=== PATIENT | female | born 1985 | race Caucasian/White ===

== ENCOUNTER → 2020-04-14 | Outpatient (CLI) | payer BC ==
[~2020-04-14] MED LIST: birth control pills
== END ==
LOC: LAB 10:30
PROVIDERS: ATTEND Nurse Anesthetist, Certified Registered
DX: Z01.812 Encounter for preprocedural laboratory examination (principal); Z20.822 Contact with and (suspected) exposure to COVID-19; D17.79 Benign lipomatous neoplasm of other sites
CPT/HCPCS: U0003

== ENCOUNTER → 2020-04-18 | Day surgery (SDC) | payer BC ==
[~2020-04-18] MED LIST changes: +BUPIVACAINE-EPI 0.25%-1:200000 MPF 30 ML VIAL. ONE
--- NOTE | 2020-04-18 11:18 | PDOC4 ---
Operative Report DATE April 182021-01-09 Preop Diagnosis Right shoulder mass Post-op Diagnosis Same Operation Performed Excision of right shoulder mass Patient is 34-year-old female with complaints of a subcutaneous mass in her right shoulder. Procedure of excision was explained to the patient detail was benefits were also discussed including bleeding infection alternatives to this procedure also discussed with patient who seemed to understand and gave a verbal written consent to have the procedure performed. Patient was taken to the minors room placed in the prone positioning her right shoulder was prepped and draped usual sterile fashion using ChloraPrep. An area over the mass was injected with quarter percent Marcaine with epinephrine once this was in anesthetized incision was made with 15 blade scalpel through the skin down to the mass which appeared to be a lipoma. The lipoma was excised sharply with Metzenbaum scissors and sent for pathology. Size of lipomas 4 x 4 cm size of the incision was 6 cm in length. The wound was closed in 2 layers the deep layer running 3-0 Vicryl and the skin was reapproximated for subcuticular Monocryl Mastisol Steri-Strips and island dressings were applied. Patient tolerated procedure well was discharged home in stable condition all sponge in strument needle counts listed as correct Surgeon Fredi ANESTHESIA PROPOSED: LOCAL Blood Loss 5 mL Specimen Right shoulder mass Complications None TANYA VALDEZ MD Apr 18, 2020 11:18
--- NOTE | 2020-04-18 11:20 | DISCH ---
DISCHARGE INSTRUCTIONS-DC Condition on Discharge Condition on Discharge: Stable Activity after Discharge Activity Instructions for Disc: No restrictions Diet after Discharge Diet after Discharge: Regular Wound/Incision Care Other wound/incision instructi: Ana shower in 24 hours Contacting the DRArtemio after DC Call your doctor for: If your condition worsens Follow-Up Follow up with: Dr. Valdez in 2 weeks TANYA VALDEZ MD Apr 18, 2020 11:20
[2020-04-18 11:26] VITALS: BP 127/79
--- NOTE | 2020-04-21 09:08 | PATHOLOGY ---
[facility] Accession Number: [id number] . 01 Material submitted: . shoulder - R SHOULDER LIPOMA. Modifiers: right . 01 Clinical history: . R SHOULDER LIPOMA . 02 Diagnosis: Segments of fibroadipose tissue, right shoulder lesion excision: - Lipoma. (JPM:protective services officer; 04/20/2020) [facility] 04/20/2020 1726 Local . 02 Electronically signed: . Gab Richey MD, Pathologist NPI- [id number] . 01 Gross description: . The specimen is received in formalin, labeled "[place], R shoulder lipoma". Received are multiple segments of yellow-seo lobulated tissue measuring 1.4 x 3.9 x 1.9 cm in aggregate dimensions. Sectioning reveals bright yellow cut surfaces with no grossly distinct nodules or lesions. The specimen is submitted representatively in cassette A1 and A2. ([facility]; 04/19/2020) QA/[facility] 04/19/2020 1545 Local . 02 Pathologist provided ICD-10: D17.79 . 02 CPT . 698734 Specimen Comment: A courtesy copy of this report has been sent to [phone] Specimen Comment: Report sent to / Performed at: 01 [facility] [address] [facility] [address], [place] [id number] MD Jacob uCadra MD Phone: [phone] Performed at: 02 [facility] [address] [place], [place] [id number] MD Gab Richey MD Phone: [phone]
== END | disposition home or self-care (01) ==
LOC: SURG 10:37
PROVIDERS: ATTEND Surgery
DX: R22.31 Localized swelling, mass and lump, right upper limb (principal); D17.21 Benign lipomatous neoplasm of skin and subcutaneous tissue of right arm; Z79.899 Other long term (current) drug therapy
CPT/HCPCS: 23071; J3490